=== PATIENT | male | born 1975 | race Two or more races ===

== ENCOUNTER → 2019-02-16 | Outpatient (CLI) | payer BC | END | disposition home or self-care (01) | LOC: HKI 15:25 | DX: M23.204 Derangement of unspecified medial meniscus due to old tear or injury, left knee (principal); G40.909 Epilepsy, unspecified, not intractable, without status epilepticus; K27.9 Peptic ulcer, site unspecified, unspecified as acute or chronic, without hemorrhage or perforation; K21.9 Gastro-esophageal reflux disease without esophagitis; F17.210 Nicotine dependence, cigarettes, uncomplicated | CPT/HCPCS: 73562-50; 73564; 73564-LT ==

== ENCOUNTER → 2019-03-07 | Outpatient (CLI) | payer BC | END | disposition home or self-care (01) | LOC: HKI 14:29 | DX: S83.207A Unspecified tear of unspecified meniscus, current injury, left knee, initial encounter (principal); X58.XXXA Exposure to other specified factors, initial encounter; Y92.89 Other specified places as the place of occurrence of the external cause | CPT/HCPCS: 20610 ==